=== PATIENT | male | born 1950 | race Caucasian/White ===

== ENCOUNTER 2018-04-11 18:28 | Inpatient (IN) | payer MEDICARE, OTHER ==
[2018-04-11 19:13] LABS: WHITE BLOOD COUNT 24.1 10^3/ul (4.8-10.8)
[2018-04-11 19:13] LABS: ABNORMAL IP MESSAGE 1; HEMATOCRIT 48.2 % (42.0-52.0); HEMOGLOBIN 15.9 g/dl (14.0-18.0); MEAN CORPUSCULAR HEMOGLOBIN 30.5 pg (29.0-33.0); MEAN CORPUSCULAR VOLUME 92.3 fl (82.0-101.0); MEAN PLATELET VOLUME 10.2 fl (7.4-10.4); PLATELET COUNT 130 10^3/UL (140-415); POSITIVE DIFF @See below; RED BLOOD COUNT 5.22 10^6/ul (4.70-6.10); RED CELL DISTRIBUTION WIDTH 13.2 % (11.5-14.5)
[2018-04-11 19:18] LABS: ADD MAN DIFF? YES
[2018-04-11 19:27] LABS: LACTIC ACID 1.8 mmol/L (0.5-2.0)
[2018-04-11 19:29] LABS: ALANINE AMINOTRANSFERASE 23 IU/L (13-69); ALBUMIN 3.9 g/dl (3.3-4.9); ALBUMIN/GLOBULIN RATIO 0.95; ALKALINE PHOSPHATASE 59 IU/L (42-121); ANION GAP 15 (8-16); ASPARTATE AMINO TRANSFERASE 23 IU/L (15-46); BILIRUBIN,INDIRECT 0.8 mg/dl (0-1.1); BILIRUBIN,TOTAL 0.8 mg/dl (0.2-1.3); BLOOD UREA NITROGEN 18 mg/dl (7-20); CALCIUM 9.5 mg/dl (8.4-10.2); CARBON DIOXIDE 24 mmol/L (21-31); CHLORIDE 107 mmol/L (97-110); CREATININE 0.84 mg/dl (0.61-1.24); GLUCOSE 167 mg/dl (70-220); LIPASE 25 U/L (23-300); POTASSIUM 4.2 mmol/L (3.5-5.1); SODIUM 142 mmol/L (135-144)
[2018-04-11 19:30] LABS: INR 1.17; PROTIME 15.1 Sec (11.9-14.9); PT RATIO 1.2
[2018-04-11 19:31] LABS: PARTIAL THROMBOPLASTIN TIME 26.1 Sec (23.0-35.0)
[2018-04-11 19:41] LABS: AADO2 Arterial 287.3 mmHg (7.0-24.0); Allen Test ACCEPTAB; Arterial Base Excess 2.2 mmol/L (-3.0-3); Arterial Blood Gas Oxygen Sat 98.5 mmHG (95.0-98.0); Arterial COHb 0.5 % (0.0-3.0); Arterial Fraction of Oxyhgb 97.6 % (93.0-99.0); Arterial HCO3 24.6 mmol/L (22.0-26.0); Arterial MetHb 0.4 % (0.0-1.5); Arterial pCO2 32.3 mmhg (35-45); MODE MASK - SIMPLE; Site Right Radial; TROPONIN-I < 0.012 ng/ml (0.000-0.120)
[2018-04-11] MEDS: METHYLPREDNISOLONE 125 MG INJ IV (19:52)
[2018-04-11] MEDS: ACETAMINOPHEN 650 MG SUPP PR (19:52)
[2018-04-11] MEDS: CEFEPIME 1GM/50 ML (PMX) 50 ML IVPB (19:52)
[2018-04-11] MEDS: ALBUTEROL 0.5% (NEB) 2.5 MG/0.5 ML AMP INH (19:53)
[2018-04-11] MEDS: SODIUM CHLORIDE 0.9% 1L BAG IV* (19:53)
[2018-04-11 20:01] LABS: BAND NEUTROPHILS #M 1.9 10^3/ul (0.0-0.6); BAND NEUTROPHILS % (M) 8 % (0-4); GIANT THROMBO% (M) 4 % (0-0); LYMPHOCYTES #M 4.5 10^3/ul (0.8-2.9); LYMPHOCYTES % (M) 19 % (15-51); MONOCYTE #M 2.8 10^3/ul (0.3-0.9); MONOCYTES % (M) 12 % (0-11); PLATELET ESTIMATE DECREASED; SEG NEUT #M 15.2 10^3/ul (1.6-7.5); SEGMENTED NEUTROPHILS (M) % 61 % (39-77); SMUDGE%M 19 % (0-0)
[2018-04-11 20:16] LABS: ADD UMIC YES; UR ASCORBIC ACID 20 mg/dL (NEGATIVE); UR BILIRUBIN (Dip) NEGATIVE (NEGATIVE); UR BLOOD (Dip) 1+ mg/dL (NEGATIVE); UR CLARITY CLEAR (CLEAR); UR COLOR AMBER (YELLOW); UR GLUCOSE (Dip) NEGATIVE (NEGATIVE); UR KETONES (Dip) TRACE mg/dL (NEGATIVE); UR LEUKOCYTE ESTERASE (Dip) NEGATIVE Leu/ul (NEGATIVE); UR MUCUS FEW /HPF (NONE SEEN); UR NITRITE (Dip) NEGATIVE (NEGATIVE); UR RBC 3 /HPF (0-5); UR SPECIFIC GRAVITY (Dip) 1.038 (1.003-1.030); UR TOTAL PROTEIN (Dip) 2+ mg/dl (NEGATIVE); UR UROBILINOGEN (Dip) 1+ mg/dL (NEGATIVE); UR WBC 2 /HPF (0-5)
[2018-04-11] MEDS: VANCOMYCIN 1 GM (PMX) 250 ML IVPB (20:18)
[2018-04-12] MEDS ORDERED: ACETAMINOPHEN 650 MG SUPP PR
[2018-04-12] MEDS ORDERED: ACETAMINOPHEN 325 MG TAB PO
[2018-04-12] MEDS ORDERED: VANCOMYCIN IV PER PHARMACY XX
[2018-04-12] MEDS ORDERED: ACETAMINOPHEN 1000MG/100ML IV 100 ML IVPB
[2018-04-12] MEDS: DEXTROSE 5%-0.45% NACL 1,000 ML IV ×3 (00:16→23:33)
[2018-04-12] MEDS ORDERED: ALBUTEROL/IPRATROPIUM (NEB) 3 ML AMP HHN (00:30)
[2018-04-12] MEDS: PIPER-TAZO 3.375 GM IV (PMX) 100 ML IVPB ×5 (00:36→23:33)
[2018-04-12] MEDS: INSULIN ASPART [NOVOLOG] 3 ML PEN SC ×6 (01:00→20:42)
[2018-04-12] MEDS ORDERED: GLUCOSE GEL 15 GRAM TUBE PO ×2 (01:00)
[2018-04-12] MEDS ORDERED: GLUCOSE GEL 15 GRAM TUBE BUCCAL (01:00)
[2018-04-12] MEDS ORDERED: DEXTROSE 50% 50 ML SYRINGE IV ×2 (01:00)
[2018-04-12] MEDS ORDERED: GLUCAGON 1 MG INJ IM (01:00)
[2018-04-12] MEDS: ALBUTEROL/IPRATROPIUM (NEB) 3 ML AMP HHN ×6 (01:27→21:06)
[2018-04-12] MEDS: ACCU-CHEK XX (02:00)
[2018-04-12 05:08] LABS: ADD MAN DIFF? NO
[2018-04-12 05:40] LABS: ANION GAP 11 (8-16); BLOOD UREA NITROGEN 14 mg/dl (7-20); CALCIUM 7.9 mg/dl (8.4-10.2); CARBON DIOXIDE 24 mmol/L (21-31); CHLORIDE 111 mmol/L (97-110); CREATININE 0.71 mg/dl (0.61-1.24); GLUCOSE 182 mg/dl (70-220); POTASSIUM 3.9 mmol/L (3.5-5.1); SODIUM 142 mmol/L (135-144)
[2018-04-12] MEDS: METHYLPREDNISOLONE 40 MG INJ IV ×2 (05:49→13:24)
[2018-04-12] MEDS: PANTOPRAZOLE 40 MG INJ IV (05:49)
[2018-04-12] MEDS: VANCOMYCIN 1.25 GM in SOD CHLORIDE 0.9% 250 ML IVPB ×2 (09:34→20:45)
[2018-04-12 11:57] LABS: WHITE BLOOD COUNT 25.5 10^3/ul (4.8-10.8)
[2018-04-12 11:57] LABS: ABNORMAL IP MESSAGE 1; BASOPHILS % 0.2 % (0.0-2.0); HEMATOCRIT 40.8 % (42.0-52.0); HEMOGLOBIN 12.8 g/dl (14.0-18.0); LYMPHOCYTES # 1.8 10^3/ul (0.8-2.9); MEAN CORPUSCULAR HEMOGLOBIN 30.5 pg (29.0-33.0); MEAN CORPUSCULAR HGB CONC 31.4 g/dl (32.0-37.0); MEAN CORPUSCULAR VOLUME 97.4 fl (82.0-101.0); MEAN PLATELET VOLUME 10.8 fl (7.4-10.4); MONOCYTE # 2.5 10^3/ul (0.3-0.9); MONOCYTES % 9.7 % (0.0-11.0); NEUTROPHILS % 82.4 % (39.0-77.0); PLATELET COUNT 94 10^3/UL (140-415); POSITIVE DIFF @See below; RED BLOOD COUNT 4.19 10^6/ul (4.70-6.10); RED CELL DISTRIBUTION WIDTH 13.4 % (11.5-14.5)
[2018-04-12] MEDS: LEVETIRACETAM 500 MG (PMX) 100 ML IVPB (20:40)
[2018-04-12] MEDS ORDERED: LEVETIRACETAM IV 500 MG in DEXTROSE 5% 100 ML IVPB (21:00)
[2018-04-13] MEDS: INSULIN ASPART [NOVOLOG] 3 ML PEN SC ×6 (01:00→21:00)
[2018-04-13] MEDS: ALBUTEROL/IPRATROPIUM (NEB) 3 ML AMP HHN ×7 (01:06→21:40)
[2018-04-13] MEDS: ACCU-CHEK XX (01:08)
[2018-04-13] MEDS: PIPER-TAZO 3.375 GM IV (PMX) 100 ML IVPB ×3 (05:56→17:36)
[2018-04-13] MEDS: PANTOPRAZOLE 40 MG INJ IV (05:57)
[2018-04-13 06:14] LABS: ADD MAN DIFF? NO
[2018-04-13 06:26] LABS: WHITE BLOOD COUNT 19.2 10^3/ul (4.8-10.8)
[2018-04-13 06:26] LABS: ABNORMAL IP MESSAGE 1; BASOPHILS % 0.2 % (0.0-2.0); HEMATOCRIT 34.5 % (42.0-52.0); HEMOGLOBIN 11.3 g/dl (14.0-18.0); LYMPHOCYTES # 1.7 10^3/ul (0.8-2.9); LYMPHOCYTES % 8.6 % (15.0-51.0); MEAN CORPUSCULAR HEMOGLOBIN 30.7 pg (29.0-33.0); MEAN CORPUSCULAR HGB CONC 32.8 g/dl (32.0-37.0); MEAN CORPUSCULAR VOLUME 93.8 fl (82.0-101.0); MEAN PLATELET VOLUME 10.8 fl (7.4-10.4); MONOCYTE # 2.5 10^3/ul (0.3-0.9); MONOCYTES % 13.2 % (0.0-11.0); NEUTROPHIL # 14.8 10^3/ul (1.6-7.5); NEUTROPHILS % 77.1 % (39.0-77.0); PLATELET COUNT 86 10^3/UL (140-415); POSITIVE DIFF @See below; RED BLOOD COUNT 3.68 10^6/ul (4.70-6.10); RED CELL DISTRIBUTION WIDTH 13.1 % (11.5-14.5)
[2018-04-13 06:43] LABS: ALANINE AMINOTRANSFERASE 15 IU/L (13-69); ALBUMIN 2.6 g/dl (3.3-4.9); ALBUMIN/GLOBULIN RATIO 0.89; ALKALINE PHOSPHATASE 38 IU/L (42-121); ANION GAP 9 (8-16); ASPARTATE AMINO TRANSFERASE 17 IU/L (15-46); BILIRUBIN,INDIRECT 0.3 mg/dl (0-1.1); BILIRUBIN,TOTAL 0.3 mg/dl (0.2-1.3); BLOOD UREA NITROGEN 14 mg/dl (7-20); CARBON DIOXIDE 25 mmol/L (21-31); CHLORIDE 112 mmol/L (97-110); CREATININE 0.58 mg/dl (0.61-1.24); GLUCOSE 143 mg/dl (70-220); POTASSIUM 3.6 mmol/L (3.5-5.1); SODIUM 142 mmol/L (135-144); TOTAL PROTEIN 5.5 g/dl (6.1-8.1)
[2018-04-13 06:49] LABS: PHOSPHORUS 2.1 mg/dl (2.5-4.9)
[2018-04-13 06:49] LABS: MAGNESIUM 1.9 mg/dl (1.7-2.5)
[2018-04-13] MEDS: LEVETIRACETAM 500 MG (PMX) 100 ML IVPB ×2 (07:58→20:01)
[2018-04-13] MEDS: METHYLPREDNISOLONE 40 MG INJ IV (08:08)
[2018-04-13] MEDS: VANCOMYCIN 1.25 GM in SOD CHLORIDE 0.9% 250 ML IVPB ×2 (10:37→22:03)
[2018-04-13] MEDS ORDERED: LORAZEPAM 1 MG TAB PO (13:00)
[2018-04-13] MEDS: DEXTROSE 5%-0.45% NACL 1,000 ML IV (20:01)
[2018-04-13] MEDS ORDERED: VALPROIC ACID 250 MG CAP PO (21:00)
[2018-04-13 21:35] LABS: VANCOMYCIN,TROUGH 12.6 ug/ml (10.0-20.0)
[2018-04-13] MEDS: VALPROIC ACID LIQUID CUP 250 MG/5 ML CUP PO (22:14)
[2018-04-14] MEDS: ALBUTEROL/IPRATROPIUM (NEB) 3 ML AMP HHN ×6 (01:00→20:14)
[2018-04-14] MEDS: PIPER-TAZO 3.375 GM IV (PMX) 100 ML IVPB ×5 (01:06→22:14)
[2018-04-14] MEDS: ACCU-CHEK XX (02:00)
[2018-04-14] MEDS: PANTOPRAZOLE 40 MG INJ IV (05:25)
[2018-04-14 05:37] LABS: ADD MAN DIFF? NO
[2018-04-14 05:41] LABS: WHITE BLOOD COUNT 14.8 10^3/ul (4.8-10.8)
[2018-04-14 05:41] LABS: BASOPHILS % 0.1 % (0.0-2.0); HEMATOCRIT 33.6 % (42.0-52.0); HEMOGLOBIN 11.2 g/dl (14.0-18.0); LYMPHOCYTES # 2.6 10^3/ul (0.8-2.9); LYMPHOCYTES % 17.3 % (15.0-51.0); MEAN CORPUSCULAR HEMOGLOBIN 30.5 pg (29.0-33.0); MEAN CORPUSCULAR HGB CONC 33.3 g/dl (32.0-37.0); MEAN CORPUSCULAR VOLUME 91.6 fl (82.0-101.0); MEAN PLATELET VOLUME 10.7 fl (7.4-10.4); MONOCYTE # 1.3 10^3/ul (0.3-0.9); NEUTROPHIL # 10.7 10^3/ul (1.6-7.5); PLATELET COUNT 107 10^3/UL (140-415); RED BLOOD COUNT 3.67 10^6/ul (4.70-6.10); RED CELL DISTRIBUTION WIDTH 13.2 % (11.5-14.5)
[2018-04-14 06:48] LABS: ANION GAP 6 (8-16); BLOOD UREA NITROGEN 14 mg/dl (7-20); CARBON DIOXIDE 26 mmol/L (21-31); CHLORIDE 113 mmol/L (97-110); CREATININE 0.63 mg/dl (0.61-1.24); GLUCOSE 99 mg/dl (70-220); POTASSIUM 3.2 mmol/L (3.5-5.1); SODIUM 142 mmol/L (135-144)
[2018-04-14] MEDS: INSULIN ASPART [NOVOLOG] 3 ML PEN SC ×4 (07:59→20:51)
[2018-04-14] MEDS: LEVETIRACETAM 500 MG (PMX) 100 ML IVPB ×2 (07:59→20:47)
[2018-04-14] MEDS: ESCITALOPRAM 10 MG TAB PO (08:06)
[2018-04-14] MEDS: METHYLPREDNISOLONE 40 MG INJ IV (08:06)
[2018-04-14] MEDS: VANCOMYCIN 1.25 GM in SOD CHLORIDE 0.9% 250 ML IVPB ×2 (09:55→22:51)
[2018-04-14 10:19] LABS: PHOSPHORUS 1.7 mg/dl (2.5-4.9)
[2018-04-14 10:19] LABS: MAGNESIUM 1.9 mg/dl (1.7-2.5)
[2018-04-14] MEDS: DEXTROSE 5%-0.45% NACL 1,000 ML IV (11:12)
[2018-04-14] MEDS: BARIUM SULFATE 135 ML (E-Z HD) PO (11:46)
[2018-04-14] MEDS: SODIUM PHOSPHATE 40 MEQ in SOD CHLORIDE 0.9% 250 ML IVPB (13:47)
[2018-04-14] MEDS: ALBUMIN HUMAN 25% 100 ML IV (17:30)
[2018-04-14] MEDS: VALPROIC ACID LIQUID CUP 250 MG/5 ML CUP PO (20:51)
[2018-04-15] MEDS: ALBUTEROL/IPRATROPIUM (NEB) 3 ML AMP HHN ×6 (00:28→20:34)
[2018-04-15] MEDS: Insulin NOVOLOG SS MILD Algorithm (NPO/TPN/ENTERAL FEEDS) SC ×6 (01:00→21:00)
[2018-04-15] MEDS ORDERED: INSULIN ASPART [NOVOLOG] 3 ML PEN SC (01:00)
[2018-04-15] MEDS: ACCU-CHEK XX (01:30)
[2018-04-15] MEDS: PIPER-TAZO 3.375 GM IV (PMX) 100 ML IVPB ×3 (05:25→18:14)
[2018-04-15] MEDS: PANTOPRAZOLE 40 MG INJ IV (05:25)
[2018-04-15 06:16] LABS: ADD MAN DIFF? NO
[2018-04-15 06:33] LABS: BASOPHILS % 0.3 % (0.0-2.0); HEMATOCRIT 33.2 % (42.0-52.0); HEMOGLOBIN 10.9 g/dl (14.0-18.0); LYMPHOCYTES # 2.9 10^3/ul (0.8-2.9); LYMPHOCYTES % 24.4 % (15.0-51.0); MEAN CORPUSCULAR HEMOGLOBIN 30.4 pg (29.0-33.0); MEAN CORPUSCULAR HGB CONC 32.8 g/dl (32.0-37.0); MEAN CORPUSCULAR VOLUME 92.7 fl (82.0-101.0); MEAN PLATELET VOLUME 10.7 fl (7.4-10.4); MONOCYTE # 1.4 10^3/ul (0.3-0.9); MONOCYTES % 11.7 % (0.0-11.0); NEUTROPHIL # 7.3 10^3/ul (1.6-7.5); NEUTROPHILS % 61.3 % (39.0-77.0); PLATELET COUNT 114 10^3/UL (140-415); RED BLOOD COUNT 3.58 10^6/ul (4.70-6.10)
[2018-04-15 07:27] LABS: ANION GAP 6 (8-16); BLOOD UREA NITROGEN 13 mg/dl (7-20); CALCIUM 8.1 mg/dl (8.4-10.2); CARBON DIOXIDE 30 mmol/L (21-31); CHLORIDE 109 mmol/L (97-110); GLUCOSE 88 mg/dl (70-220); POTASSIUM 3.2 mmol/L (3.5-5.1); SODIUM 142 mmol/L (135-144)
[2018-04-15] MEDS: ESCITALOPRAM 10 MG TAB PO (08:24)
[2018-04-15] MEDS: METHYLPREDNISOLONE 40 MG INJ IV (08:28)
[2018-04-15] MEDS: LEVETIRACETAM 500 MG (PMX) 100 ML IVPB ×2 (08:28→21:46)
[2018-04-15] MEDS: VANCOMYCIN 1.25 GM in SOD CHLORIDE 0.9% 250 ML IVPB ×2 (11:04→21:44)
[2018-04-15] MEDS: FUROSEMIDE 40 MG INJ IV (11:10)
[2018-04-15] MEDS: POTASSIUM CHLORIDE 100 ML IVPB ×2 (16:15→18:45)
[2018-04-15] MEDS: DEXTROSE 5%-0.45% NACL 1,000 ML IV (17:43)
[2018-04-15] MEDS: VALPROIC ACID LIQUID CUP 250 MG/5 ML CUP PO (21:00)
[2018-04-16] MEDS: PIPER-TAZO 3.375 GM IV (PMX) 100 ML IVPB ×4 (00:32→18:41)
[2018-04-16] MEDS: ALBUTEROL/IPRATROPIUM (NEB) 3 ML AMP HHN ×6 (01:49→20:15)
[2018-04-16] MEDS: Insulin NOVOLOG SS MILD Algorithm (NPO/TPN/ENTERAL FEEDS) SC ×6 (02:13→20:38)
[2018-04-16] MEDS: ACCU-CHEK XX (02:13)
[2018-04-16 05:39] LABS: ADD MAN DIFF? NO
[2018-04-16 05:46] LABS: WHITE BLOOD COUNT 11.8 10^3/ul (4.8-10.8)
[2018-04-16 05:46] LABS: BASOPHIL # 0.1 10^3/ul (0.0-0.1); BASOPHILS % 0.4 % (0.0-2.0); EOSINOPHILS % 0.2 % (0.0-7.0); HEMATOCRIT 37.3 % (42.0-52.0); HEMOGLOBIN 12.5 g/dl (14.0-18.0); LYMPHOCYTES # 2.6 10^3/ul (0.8-2.9); LYMPHOCYTES % 22.4 % (15.0-51.0); MEAN CORPUSCULAR HEMOGLOBIN 30.8 pg (29.0-33.0); MEAN CORPUSCULAR HGB CONC 33.5 g/dl (32.0-37.0); MEAN CORPUSCULAR VOLUME 91.9 fl (82.0-101.0); MEAN PLATELET VOLUME 10.2 fl (7.4-10.4); MONOCYTE # 1.3 10^3/ul (0.3-0.9); MONOCYTES % 11.1 % (0.0-11.0); NEUTROPHIL # 7.4 10^3/ul (1.6-7.5); NEUTROPHILS % 62.7 % (39.0-77.0); PLATELET COUNT 111 10^3/UL (140-415); POSITIVE DIFF @See below; RED BLOOD COUNT 4.06 10^6/ul (4.70-6.10); RED CELL DISTRIBUTION WIDTH 12.9 % (11.5-14.5)
[2018-04-16] MEDS: PANTOPRAZOLE 40 MG INJ IV (05:46)
[2018-04-16 06:07] LABS: ANION GAP 11 (8-16); BLOOD UREA NITROGEN 12 mg/dl (7-20); CALCIUM 8.5 mg/dl (8.4-10.2); CARBON DIOXIDE 30 mmol/L (21-31); CHLORIDE 103 mmol/L (97-110); CREATININE 0.64 mg/dl (0.61-1.24); GLUCOSE 97 mg/dl (70-220); POTASSIUM 3.6 mmol/L (3.5-5.1); SODIUM 140 mmol/L (135-144)
[2018-04-16] MEDS: DEXTROSE 5%-0.45% NACL 1,000 ML IV (07:12)
[2018-04-16] MEDS: ESCITALOPRAM 10 MG TAB PO (08:36)
[2018-04-16] MEDS: LEVETIRACETAM 500 MG (PMX) 100 ML IVPB ×2 (08:42→20:38)
[2018-04-16] MEDS: METHYLPREDNISOLONE 40 MG INJ IV (08:42)
[2018-04-16] MEDS: VANCOMYCIN 1.25 GM in SOD CHLORIDE 0.9% 250 ML IVPB ×2 (10:07→22:42)
[2018-04-16 13:12] LABS: HEMOGLOBIN A1C 5.4 % (0-5.9)
[2018-04-16] MEDS: VALPROIC ACID LIQUID CUP 250 MG/5 ML CUP PO (20:38)
[2018-04-17] MEDS: ALBUTEROL/IPRATROPIUM (NEB) 3 ML AMP HHN ×6 (00:42→20:08)
[2018-04-17] MEDS: Insulin NOVOLOG SS MILD Algorithm (NPO/TPN/ENTERAL FEEDS) SC ×6 (01:00→21:00)
[2018-04-17] MEDS: PIPER-TAZO 3.375 GM IV (PMX) 100 ML IVPB ×4 (01:17→18:14)
[2018-04-17] MEDS: ACCU-CHEK XX (01:24)
[2018-04-17] MEDS: DEXTROSE 5%-0.45% NACL 1,000 ML IV ×2 (04:08→22:39)
[2018-04-17] MEDS: PANTOPRAZOLE 40 MG INJ IV (05:56)
[2018-04-17] MEDS: METHYLPREDNISOLONE 40 MG INJ IV (08:13)
[2018-04-17] MEDS: ESCITALOPRAM 10 MG TAB PO (08:13)
[2018-04-17] MEDS: LEVETIRACETAM 500 MG (PMX) 100 ML IVPB ×2 (08:13→21:35)
[2018-04-17 09:16] LABS: ADD MAN DIFF? NO
[2018-04-17 09:18] LABS: BASOPHIL # 0.1 10^3/ul (0.0-0.1); BASOPHILS % 0.5 % (0.0-2.0); EOSINOPHILS # 0.1 10^3/ul (0.0-0.5); EOSINOPHILS % 0.9 % (0.0-7.0); HEMATOCRIT 37.8 % (42.0-52.0); HEMOGLOBIN 12.7 g/dl (14.0-18.0); LYMPHOCYTES # 3.3 10^3/ul (0.8-2.9); LYMPHOCYTES % 24.8 % (15.0-51.0); MEAN CORPUSCULAR HEMOGLOBIN 30.7 pg (29.0-33.0); MEAN CORPUSCULAR HGB CONC 33.6 g/dl (32.0-37.0); MEAN CORPUSCULAR VOLUME 91.3 fl (82.0-101.0); MEAN PLATELET VOLUME 9.7 fl (7.4-10.4); MONOCYTE # 1.4 10^3/ul (0.3-0.9); MONOCYTES % 10.5 % (0.0-11.0); NEUTROPHIL # 7.8 10^3/ul (1.6-7.5); NEUTROPHILS % 59.1 % (39.0-77.0); PLATELET COUNT 160 10^3/UL (140-415); RED BLOOD COUNT 4.14 10^6/ul (4.70-6.10); RED CELL DISTRIBUTION WIDTH 12.8 % (11.5-14.5)
[2018-04-17 09:18] LABS: WHITE BLOOD COUNT 13.1 10^3/ul (4.8-10.8)
[2018-04-17 09:34] LABS: ANION GAP 10 (8-16); BLOOD UREA NITROGEN 9 mg/dl (7-20); CALCIUM 8.6 mg/dl (8.4-10.2); CARBON DIOXIDE 30 mmol/L (21-31); CHLORIDE 103 mmol/L (97-110); CREATININE 0.71 mg/dl (0.61-1.24); GLUCOSE 90 mg/dl (70-220); SODIUM 140 mmol/L (135-144)
[2018-04-17 09:38] LABS: INR 1.14; PROTIME 14.8 Sec (11.9-14.9); PT RATIO 1.2
[2018-04-17 09:42] LABS: POTASSIUM 2.8 mmol/L (3.5-5.1)
[2018-04-17 10:06] LABS: VANCOMYCIN,TROUGH 18.1 ug/ml (10.0-20.0)
[2018-04-17] MEDS: VANCOMYCIN 1.25 GM in SOD CHLORIDE 0.9% 250 ML IVPB (10:39)
[2018-04-17] MEDS: POTASSIUM CHLORIDE 100 ML IVPB ×4 (11:09→21:35)
[2018-04-17] MEDS: PROPOFOL 20 ML (17:10)
[2018-04-17] MEDS: VALPROIC ACID LIQUID CUP 250 MG/5 ML CUP PO (21:35)
[2018-04-18] MEDS: PIPER-TAZO 3.375 GM IV (PMX) 100 ML IVPB ×5 (00:37→23:50)
[2018-04-18] MEDS: Insulin NOVOLOG SS MILD Algorithm (NPO/TPN/ENTERAL FEEDS) SC ×6 (01:00→21:00)
[2018-04-18] MEDS: ALBUTEROL/IPRATROPIUM (NEB) 3 ML AMP HHN ×6 (01:37→20:21)
[2018-04-18] MEDS: ACCU-CHEK XX (01:48)
[2018-04-18] MEDS: PANTOPRAZOLE 40 MG INJ IV (06:00)
[2018-04-18 06:11] LABS: ADD MAN DIFF? NO
[2018-04-18 06:16] LABS: ABNORMAL IP MESSAGE 1; BASOPHIL # 0.1 10^3/ul (0.0-0.1); BASOPHILS % 0.9 % (0.0-2.0); EOSINOPHILS # 0.1 10^3/ul (0.0-0.5); EOSINOPHILS % 0.6 % (0.0-7.0); HEMATOCRIT 41.1 % (42.0-52.0); HEMOGLOBIN 13.6 g/dl (14.0-18.0); LYMPHOCYTES # 4.9 10^3/ul (0.8-2.9); LYMPHOCYTES % 32.4 % (15.0-51.0); MEAN CORPUSCULAR HEMOGLOBIN 30.6 pg (29.0-33.0); MEAN CORPUSCULAR HGB CONC 33.1 g/dl (32.0-37.0); MEAN CORPUSCULAR VOLUME 92.4 fl (82.0-101.0); MEAN PLATELET VOLUME 10.1 fl (7.4-10.4); MONOCYTE # 1.4 10^3/ul (0.3-0.9); MONOCYTES % 9.1 % (0.0-11.0); NEUTROPHIL # 7.8 10^3/ul (1.6-7.5); NEUTROPHILS % 51.2 % (39.0-77.0); PLATELET COUNT 195 10^3/UL (140-415); POSITIVE DIFF @See below; RED BLOOD COUNT 4.45 10^6/ul (4.70-6.10); RED CELL DISTRIBUTION WIDTH 13.2 % (11.5-14.5)
[2018-04-18 06:16] LABS: WHITE BLOOD COUNT 15.1 10^3/ul (4.8-10.8)
[2018-04-18 06:43] LABS: ANION GAP 10 (8-16); BLOOD UREA NITROGEN 11 mg/dl (7-20); CARBON DIOXIDE 30 mmol/L (21-31); CHLORIDE 106 mmol/L (97-110); CREATININE 0.78 mg/dl (0.61-1.24); GLUCOSE 103 mg/dl (70-220); SODIUM 142 mmol/L (135-144)
[2018-04-18] MEDS: LEVETIRACETAM 500 MG (PMX) 100 ML IVPB (08:55)
[2018-04-18] MEDS: METHYLPREDNISOLONE 40 MG INJ IV (08:55)
[2018-04-18] MEDS: ESCITALOPRAM 10 MG TAB PO (09:10)
[2018-04-18] MEDS ORDERED: VANCOMYCIN 1.5 GM in SOD CHLORIDE 0.9% 250 ML IVPB (11:00)
[2018-04-18] MEDS: FUROSEMIDE 40 MG INJ IV ×2 (12:12→17:22)
[2018-04-18] MEDS: FAMOTIDINE 20 MG TAB GTB (21:39)
[2018-04-18] MEDS: LEVETIRACETAM 500 MG TAB GTB (21:39)
[2018-04-18] MEDS: VALPROIC ACID LIQUID CUP 250 MG/5 ML CUP PO (21:40)
[2018-04-19] MEDS: ALBUTEROL/IPRATROPIUM (NEB) 3 ML AMP HHN ×6 (01:00→20:52)
[2018-04-19] MEDS: Insulin NOVOLOG SS MILD Algorithm (NPO/TPN/ENTERAL FEEDS) SC ×6 (01:00→21:00)
[2018-04-19] MEDS: ACCU-CHEK XX (02:00)
[2018-04-19] MEDS: PIPER-TAZO 3.375 GM IV (PMX) 100 ML IVPB ×3 (05:51→17:31)
[2018-04-19] MEDS: FUROSEMIDE 40 MG INJ IV ×2 (05:52→17:31)
[2018-04-19] MEDS ORDERED: PANTOPRAZOLE (EC) 40 MG TAB PO (06:00)
[2018-04-19 06:02] LABS: ADD MAN DIFF? NO
[2018-04-19 06:06] LABS: ABNORMAL IP MESSAGE 1; BASOPHIL # 0.1 10^3/ul (0.0-0.1); BASOPHILS % 0.5 % (0.0-2.0); EOSINOPHILS # 0.1 10^3/ul (0.0-0.5); EOSINOPHILS % 0.3 % (0.0-7.0); HEMATOCRIT 43.6 % (42.0-52.0); HEMOGLOBIN 14.2 g/dl (14.0-18.0); LYMPHOCYTES # 5.7 10^3/ul (0.8-2.9); MEAN CORPUSCULAR HEMOGLOBIN 30.1 pg (29.0-33.0); MEAN CORPUSCULAR HGB CONC 32.6 g/dl (32.0-37.0); MEAN CORPUSCULAR VOLUME 92.4 fl (82.0-101.0); MEAN PLATELET VOLUME 9.9 fl (7.4-10.4); MONOCYTE # 1.8 10^3/ul (0.3-0.9); NEUTROPHIL # 11.1 10^3/ul (1.6-7.5); NEUTROPHILS % 56.5 % (39.0-77.0); PLATELET COUNT 242 10^3/UL (140-415); POSITIVE DIFF @See below; RED BLOOD COUNT 4.72 10^6/ul (4.70-6.10); RED CELL DISTRIBUTION WIDTH 13.3 % (11.5-14.5)
[2018-04-19 06:06] LABS: WHITE BLOOD COUNT 19.6 10^3/ul (4.8-10.8)
[2018-04-19 06:31] LABS: ANION GAP 12 (8-16); BLOOD UREA NITROGEN 20 mg/dl (7-20); CALCIUM 8.9 mg/dl (8.4-10.2); CARBON DIOXIDE 33 mmol/L (21-31); CHLORIDE 102 mmol/L (97-110); GLUCOSE 101 mg/dl (70-220); POTASSIUM 3.3 mmol/L (3.5-5.1); SODIUM 144 mmol/L (135-144)
[2018-04-19] MEDS: FAMOTIDINE 20 MG TAB GTB ×2 (09:25→20:56)
[2018-04-19] MEDS: LEVETIRACETAM 500 MG TAB GTB ×2 (09:25→20:56)
[2018-04-19] MEDS: predniSONE 20 MG TAB GTB (09:25)
[2018-04-19] MEDS: ESCITALOPRAM 10 MG TAB PO (09:25)
[2018-04-19] MEDS: POTASSIUM CHLORIDE 100 ML IVPB ×2 (16:05→19:33)
[2018-04-19] MEDS: VALPROIC ACID LIQUID CUP 250 MG/5 ML CUP PO (20:56)
[2018-04-20] MEDS: PIPER-TAZO 3.375 GM IV (PMX) 100 ML IVPB ×2 (00:13→05:36)
[2018-04-20] MEDS: ALBUTEROL/IPRATROPIUM (NEB) 3 ML AMP HHN ×4 (00:50→12:39)
[2018-04-20] MEDS: Insulin NOVOLOG SS MILD Algorithm (NPO/TPN/ENTERAL FEEDS) SC ×4 (01:00→13:00)
[2018-04-20] MEDS: ACCU-CHEK XX ×2 (02:00)
[2018-04-20] MEDS: FUROSEMIDE 40 MG INJ IV (05:37)
[2018-04-20 05:45] LABS: ADD MAN DIFF? NO
[2018-04-20 05:53] LABS: WHITE BLOOD COUNT 12.4 10^3/ul (4.8-10.8)
[2018-04-20 05:53] LABS: BASOPHIL # 0.1 10^3/ul (0.0-0.1); BASOPHILS % 0.4 % (0.0-2.0); EOSINOPHILS % 0.3 % (0.0-7.0); HEMATOCRIT 45.3 % (42.0-52.0); HEMOGLOBIN 14.9 g/dl (14.0-18.0); LYMPHOCYTES # 4.3 10^3/ul (0.8-2.9); LYMPHOCYTES % 34.9 % (15.0-51.0); MEAN CORPUSCULAR HEMOGLOBIN 30.3 pg (29.0-33.0); MEAN CORPUSCULAR HGB CONC 32.9 g/dl (32.0-37.0); MEAN CORPUSCULAR VOLUME 92.3 fl (82.0-101.0); MEAN PLATELET VOLUME 11.4 fl (7.4-10.4); MONOCYTE # 1.1 10^3/ul (0.3-0.9); NEUTROPHIL # 6.4 10^3/ul (1.6-7.5); NEUTROPHILS % 51.5 % (39.0-77.0); POSITIVE DIFF @See below; RED BLOOD COUNT 4.91 10^6/ul (4.70-6.10); RED CELL DISTRIBUTION WIDTH 13.6 % (11.5-14.5)
[2018-04-20 05:55] LABS: PLATELET COUNT 145 10^3/UL (140-415)
[2018-04-20 06:41] LABS: ANION GAP 14 (8-16); BLOOD UREA NITROGEN 26 mg/dl (7-20); CALCIUM 9.2 mg/dl (8.4-10.2); CARBON DIOXIDE 32 mmol/L (21-31); CHLORIDE 98 mmol/L (97-110); CREATININE 0.86 mg/dl (0.61-1.24); GLUCOSE 103 mg/dl (70-220); MAGNESIUM 2.3 mg/dl (1.7-2.5); PHOSPHORUS 3.3 mg/dl (2.5-4.9); POTASSIUM 3.7 mmol/L (3.5-5.1); SODIUM 140 mmol/L (135-144)
[2018-04-20] MEDS: LEVETIRACETAM 500 MG TAB GTB (09:32)
[2018-04-20] MEDS: ESCITALOPRAM 10 MG TAB PO (09:33)
[2018-04-20] MEDS: predniSONE 20 MG TAB GTB (09:35)
[2018-04-20] MEDS: FAMOTIDINE 20 MG TAB GTB (09:35)
== END 2018-04-20 17:30 | DRG 871 ==
LOC: E/R 18:28 → 6WM 04-12 18:07 → ICU 20:49
PROC: 0DH63UZ Insertion of Feeding Device into Stomach, Percutaneous Approach (ICD-10-PCS; principal; 2018-04-17 10:30)
DX: A41.9 Sepsis, unspecified organism (principal); R53.2 Functional quadriplegia; J69.0 Pneumonitis due to inhalation of food and vomit; J96.21 Acute and chronic respiratory failure with hypoxia; G93.40 Encephalopathy, unspecified; E46 Unspecified protein-calorie malnutrition; B18.1 Chronic viral hepatitis B without delta-agent; R65.20 Severe sepsis without septic shock; E11.9 Type 2 diabetes mellitus without complications; G40.909 Epilepsy, unspecified, not intractable, without status epilepticus; E03.9 Hypothyroidism, unspecified; F32.9 Major depressive disorder, single episode, unspecified; K21.9 Gastro-esophageal reflux disease without esophagitis; G83.9 Paralytic syndrome, unspecified; F41.9 Anxiety disorder, unspecified; E78.5 Hyperlipidemia, unspecified; R13.10 Dysphagia, unspecified; E86.0 Dehydration; D69.6 Thrombocytopenia, unspecified; E55.9 Vitamin D deficiency, unspecified; J44.9 Chronic obstructive pulmonary disease, unspecified; M24.542 Contracture, left hand; M24.571 Contracture, right ankle; M24.572 Contracture, left ankle; I10 Essential (primary) hypertension; Z74.01 Bed confinement status; Z87.820 Personal history of traumatic brain injury
CPT/HCPCS: 36415; 36600; 71045; 74230; 76604; 80048; 80053; 80202; 81001; 82652; 82803; 82962; 83036; 83605; 83690; 83735; 84100; 84484; 85025; 85610; 85730; 86850; 86900; 86901; 87040; 87081; 87086; 87400; 92526; 92610; 92611; 93005; 94640; 94644; 96365; 96368; 96375; 99291-25